=== PATIENT | male | born 1975 | race African-American/Black ===

== ENCOUNTER 2019-03-22 07:06 | Emergency (ER) | payer MEDICARE, MEDICAID ==
[~2019-03-22] VITALS: Ht 188 cm; Wt 136.0 kg
[2019-03-22] MEDS ORDERED: SODIUM CHLORIDE 0.9% 1,000 ML IV ONE (07:23)
[2019-03-22 09:04] LABS: BASOPHILS % 0.4 % (0.0-2.0); EOSINOPHILS % 1.1 % (0.0-5.0); HEMATOCRIT. 37.5 % (42.0-52.0); HEMOGLOBIN. 12.8 g/dL (14.0-18.0); LYMPHOCYTES % 21.7 % (20.0-50.0); MEAN CORPUSCULAR HEMOGLOBIN 32.7 pg (28.0-32.0); MEAN CORPUSCULAR VOLUME 96.2 fL (80.0-94.0); MEAN PLATELET VOLUME 9.9 fl (7.4-10.4); MONOCYTES % 14.6 % (2.0-8.0); NEUTROPHILS % 62.2 % (40.0-76.0); PLATELET 153 x1000/uL (130-400); RED CELL DISTRIBUTION WIDTH 15.8 % (11.6-14.6)
[2019-03-22 09:09] LABS: CHLORIDE 108 mEq/L (98-107)
[2019-03-22] MEDS ORDERED: CALCIUM CHLORIDE 1,000 MG in DEXT 5% WATER 90 ML IV NR (09:45)
[2019-03-22] MEDS ORDERED: ERGOCALCIFEROL 50000UNITS CAPSULE PO NR (09:45)
[2019-03-22 12:42] VITALS: BP 162/106
== END 2019-03-22 12:46 | disposition home or self-care (01) ==
LOC: ER 07:06
DX: E83.51 Hypocalcemia (principal); R25.2 Cramp and spasm; I10 Essential (primary) hypertension; F12.10 Cannabis abuse, uncomplicated; F17.200 Nicotine dependence, unspecified, uncomplicated
CPT/HCPCS: 36415; 80053; 85025; 96361; 96365; 99283; J3490; J7030; J7060